=== PATIENT | female | born 1980 | race Caucasian/White ===

== ENCOUNTER 2019-02-15 00:10 | Outpatient (CLI) | payer SELFPAY ==
--- NOTE | 2019-02-15 13:00 | ETT_ITS ---
*[facility]* *[facility]* [address] [place] [address] Stress Electrocardiography Willy protocol Date of study: 02/15/2019 *PATIENT PRESENTATION* Height: 177.8cm (70in) Blood Pressure: Weight: 77.3kg (170lb) BSA: 1.96m^2 Ordering physician: Leslye Magallanes Impressions: Normal study after maximal exercise. Summary: 1. Stress: The target heart rate was achieved. Indication: R07.9. History: REASON FOR TESTING: PATIENT TESTING TODAY FOR FURTHER RISK STRATIFICATION. PATIENT REPORTS FOR THE LAST 8-9 YEARS SHE HAS HAD SUBSTERNAL CHEST PAIN (01/26) WITH RADIATION TO HER UPPER BACK WHICH HAS BEEN INCREASING IN FREQUENCY LATELY. THIS PAIN CAN HAPPEN AT REST OR WITH ACTIVITY AND CAN LAST ANYWHERE FROM TWO TO FIVE MINUTES THEN GOES AWAY ON ITS OWN. PATIENT DENIES CHEST PAIN/PRESSURE UPON ARRIVAL TO TESTING TODAY. SIGNIFICANT PAST MEDICAL HISTORY: PATIENT HAS A SISTER WHO HAD A HEART ATTACK AT 40 YEARS OLD. SMOKING STATUS: CURRENT SMOKER. SMOKED FOR 18 YEARS 1PPD. EXERCISE ROUTINE: PATIENT HAS AN ACTIVE 3 YEAR OLD, A 12 YEAR OLD AUTISTIC CHILD AND WORKS OUTSIDE OF THE HOME. Risk factors: Family history of coronary artery disease. Current tobacco use. ALLERGIES: PENICILLIN, AMOXICILLIN. MEDICATIONS: OMEPRAZOLE 40 MG DAILY, IBUPROFEN 800 MG Q6H PRN (PATIENT USUALLY TAKES AT LEAST 3 TIMES PER DAY), TUMS PRN. Protocol: Willy protocol. Baseline ECG: SINUS RHYTHM. HR 74 BPM. Stress protocol: + +---+ + !Stage !HR !BP (mmHg) ! + +---+ + !Baseline supine !74 !124/82 (96) ! + +---+ + !Baseline standing !84 !120/82 (95) ! + +---+ + !Stage I; 1.7mph, 10degrees; 3 min !148!144/70 (95) ! + +---+ + !Stage II; 2.5mph, 12degrees; 3 min !154!158/76 (103)! + +---+ + !Stage III; 3.4mph, 14degrees; 3 min!158!172/80 (111)! + +---+ + !Peak stress !169! ! + +---+ + !Recovery; 1 min !133!156/80 (105)! + +---+ + !Recovery; 3 min !103!150/86 (107)! + +---+ + !Recovery; 6 min !98 !142/86 (105)! + +---+ + !Recovery; 9 min !94 !130/86 (101)! + +---+ + * Stress results: STRESS TEST ENDED IN 9 MINUTES 5 SECONDS DUE TO FATIGUE. NORMAL HEART RATE AND BLOOD PRESSURE. MAX HEART RATE: 169. 91 % OF TARGET HEART RATE ACHIEVED. MET'S: 10.27. NO ECTOPY. NO ANGINA. NO SIGNIFICANT ST SEGMENT CHANGES. AVERAGE FUNCTIONAL CAPACITY. The target heart rate was achieved. The rate-pressure product for the peak heart rate and blood pressure was 97943og Hg/min. Study data: Nabeel Peña MD supervised and was readily available during the procedure. This study was interpreted by [facility]. Study status: Routine. Consent: The risks, benefits, and alternatives to the procedure were explained to the patient and informed consent was obtained. Procedure: Initial setup. A baseline ECG was recorded. Surface ECG leads and manual cuff blood pressure measurements were monitored. Heart sounds: Normal. Lung sounds: Normal. Treadmill exercise testing was performed using the Willy protocol. Study completion: The patient tolerated the procedure well and was discharged from the lab. Discharge: The patient left the laboratory in stable condition. Birthdate: Patient birthdate: 1980. Sex: Gender: female. Study date: Study date: 02/15/2019. Study time: 00:01 AM. Signature Documentation: The Stress ECG portion of this study was interpreted by Nabeel Peña MD. Electronically signed by Nabeel Peña 02/15/2019 14:55
== END 2019-02-15 00:30 ==
PROVIDERS: PCP Internal Medicine; Visit Provider Internal Medicine
DX: I20.9 Angina pectoris, unspecified (principal); R07.89 Other chest pain; Z82.49 Family history of ischemic heart disease and other diseases of the circulatory system
CPT/HCPCS: 93017

== ENCOUNTER 2020-07-15 14:25 | Outpatient (REF) | payer MEDICAID, SELFPAY ==
[2020-07-16 16:27] LABS: COVID-19 RT-PCR UVMMC Result Negative (Negative)
== END 2020-07-15 14:45 ==
LOC: NCHCN 14:25
PROVIDERS: PCP Internal Medicine; Visit Provider Nurse Practitioner Family
DX: Z11.52 Encounter for screening for COVID-19 (principal)
CPT/HCPCS: U0003